=== PATIENT | male | born 1945 | race Caucasian/White ===

== ENCOUNTER 2022-02-24 14:56 | Emergency (ER) | payer OTHER ==
[~2022-02-24] VITALS: Ht 180.3 cm; Wt 86.2 kg
[2022-02-24 14:58] VITALS: BP 150/90
--- NOTE | 2022-02-24 15:03 | NUR ---
[facility] BLS TO ER BED 13
--- NOTE | 2022-02-24 15:21 | NUR ---
PT MOVED TO ER BED 2
[2022-02-24 15:40] LABS: BASOPHILS % (AUTO) 0.5 % (0.0-2.0); EOSINOPHILS # (AUTO) 0.1 K/uL (0-0.4); EOSINOPHILS % (AUTO) 2.1 % (0.0-4.0); HEMATOCRIT 35.4 % (36-52); LYMPHOCYTES % (AUTO) 21.1 % (20.5-51.1); MEAN CORPUSCULAR HEMOGLOBIN 30 pg (27-31); MEAN CORPUSCULAR HGB CONC 34 g/dL (33-37); MEAN CORPUSCULAR VOLUME 89.3 fL (80-94); MONOCYTES # (AUTO) 0.5 K/uL (0.8-1.0); MONOCYTES % (AUTO) 10.4 % (1.7-9.3); NEUTROPHILS % (AUTO) 65.9 % (42.2-75.2); PLATELET COUNT (AUTO) 168 K/uL (140-450); RED BLOOD CELL COUNT(AUTO) 3.96 MIL/uL (4.20-6.10); RED CELL DISTRIBUTION WIDTH 13.9 % (11.6-13.7); WHITE BLOOD COUNT (AUTO) 4.5 K/uL (4.8-10.8)
[2022-02-24 16:00] LABS: ANION GAP 8.8 (8-16); ASPARTATE AMINOTRANSFERASE 18 U/L (15-37); CARBON DIOXIDE 33.9 mmol/L (21-32); CHLORIDE 104 mmol/L (98-107); CREATININE 1.3 mg/dL (0.6-1.3); GLUCOSE 207 mg/dL (74-106); POTASSIUM 3.7 mmol/L (3.5-5.1); SODIUM SERUM 143 mmol/L (136-145); TOTAL BILIRUBIN 0.4 mg/dL (0.0-1.0); UREA NITROGEN, BLOOD 28 mg/dL (7-18)
[2022-02-24] MEDS ORDERED: LACTATED RINGERS 1,000 ML IV STA (18:14)
--- NOTE | 2022-02-24 19:00 | NUR ---
Number to be called when discharged for transportation back to facility. [phone].
--- NOTE | 2022-02-24 19:02 | NUR ---
Per ER MD fluids to be discontinued.
--- NOTE | 2022-02-24 19:14 | NUR ---
Pt's contact infor for transportation home, [place]- [phone]. will order an uber for pt when he is dressed and ready to go.
[2022-02-24 20:59] VITALS: BP 167/92
--- NOTE | 2022-02-24 21:03 | NUR ---
Patient discharged with v/s stable. Written and verbal after care instructions given and explained. Patient verbalized understanding. Wheel Chair Assisted with to home. All questions addressed prior to discharge. Advised to follow up with PMD. pt went home with his belongings.
== END 2022-02-24 21:03 | disposition home or self-care (01) ==
LOC: MED 14:56
DX: S09.90XA Unspecified injury of head, initial encounter (principal); R55 Syncope and collapse; K21.9 Gastro-esophageal reflux disease without esophagitis; I10 Essential (primary) hypertension; E11.9 Type 2 diabetes mellitus without complications; Z79.4 Long term (current) use of insulin; Z79.899 Other long term (current) drug therapy; W18.30XA Fall on same level, unspecified, initial encounter; Y93.89 Activity, other specified; Y92.89 Other specified places as the place of occurrence of the external cause; Y99.8 Other external cause status
CPT/HCPCS: 36415; 70450; 71045; 72125; 80053; 83880; 84484; 85025; 93005; 99285